=== PATIENT | female | born 1980 | race Hispanic/Latino ===

== ENCOUNTER 2023-07-29 08:24 | Observation (INO) | payer BC ==
[2023-07-28 14:40] LABS: BASOPHILS % 0.4 % (0.0-1.0); EOSINOPHILS # (AUTO) 0.1 (0.0-0.4); EOSINOPHILS % 1.6 % (0.0-6.0); HEMATOCRIT 39.4 % (34.2-44.1); HEMOGLOBIN 13.9 g/dL (12.0-16.0); LYMPHOCYTES # (AUTO) 2.4 (1.0-3.2); LYMPHOCYTES % 28.2 % (18.0-39.1); MEAN CORPUSCULAR HEMOGLOBIN 30.3 pg (28-32); MEAN CORPUSCULAR HGB CONC 35.3 g/dL (31-35); MONOCYTES # (AUTO) 0.7 (0.2-0.8); MONOCYTES % 8.5 % (4.4-11.3); NEUTROPHILS # (AUTO) 5.2 (2.1-6.9); NEUTROPHILS % 61.1 % (38.7-80.0); PLATELET COUNT 231 x10e3/uL (140-360); RED BLOOD COUNT 4.58 x10e6/uL (3.6-5.1); RED CELL DISTRIBUTION WIDTH 12.1 % (11.7-14.4); WHITE BLOOD COUNT 8.52 x10e3/uL (4.8-10.8)
[2023-07-28 14:57] LABS: INR 0.85; PROTHROMBIN TIME 12.1 seconds (11.9-14.5)
[2023-07-28 14:58] LABS: PARTIAL THROMBOPLASTIN TIME 30.4 seconds (23.8-35.5)
[2023-07-28 15:04] LABS: ANION GAP 13.1 mmol/L (8-16); CALCIUM 9.6 mg/dL (8.4-10.2); CREATININE, SERUM 0.89 mg/dL (0.57-1.11); POTASSIUM 4.1 mmol/L (3.5-5.1)
[~2023-07-29] VITALS: Ht 170.2 cm; Wt 80.7 kg
[~2023-07-29 08:24] MED LIST: BENTYL10 MG PO; DICYCLOMINE HCL20 MG PO; ONDANSETRON ODT4 MG SL; PANTOPRAZOLE SO40 MG PO; SEMAGLUTIDE SC; THROMBIN FOR SOLN 5,000 UNIT VIAL ONE; TRULANCE3 MG PO; TYLENOL #3 PO; Vancomycin IV 1 GM VIAL ONE
[2023-07-29] MEDS ORDERED: SODIUM CHLORIDE 0.9% 250ML 250 ML ONE (09:13)
[2023-07-29] MEDS ORDERED: Vancomycin IV 1 GM VIAL ONE (09:13)
[2023-07-29] MEDS ORDERED: LACTATED RINGER'S 1,000 ML ONE (09:13)
[2023-07-29] MEDS ORDERED: HYDROCODON-ACE1 EA12 PO (12:05)
[2023-07-29] MEDS ORDERED: MAGNESIUM/ALUMINUM/SIMETHICONE 30 ML UDC PO PRN (12:15)
[2023-07-29] MEDS ORDERED: MORPHINE SULFATE 5 MG/ML VIAL IM PRN (12:15)
[2023-07-29] MEDS ORDERED: ACETAMINOPHEN 325 MG TAB PO PRN (12:15)
[2023-07-29] MEDS ORDERED: PROMETHAZINE HCL (IM) 25 MG/ML VIAL IM PRN (12:15)
[2023-07-29] MEDS ORDERED: CARISOPRODOL 350 MG TAB PO PRN (12:15)
[2023-07-29] MEDS ORDERED: OXYCODONE/ACETAMINOPHEN 5-325 1 EACH TABLET PO PRN (12:15)
[2023-07-29] MEDS ORDERED: ZOLPIDEM TARTRATE 5 MG TAB PO PRN (12:15)
[2023-07-29] MEDS ORDERED: ONDANSETRON HCL INJ 2MG/ML 2ML 2 MG/ML VIAL ONE ×2 (12:25→14:35)
[2023-07-29] MEDS ORDERED: PHENYLEPHRINE HCL 1% 10 MG/ML VIAL ONE (12:25)
[2023-07-29] MEDS ORDERED: DEXAMETHASONE SOD PHOS 10 MG/1 ML VIAL ONE (12:25)
[2023-07-29] MEDS ORDERED: KETAMINE 50MG/5ML SYR ONE (12:25)
[2023-07-29] MEDS ORDERED: DEXMEDETOMIDINE HCL 200 MCG/2 ML VIAL ONE (12:25)
[2023-07-29] MEDS ORDERED: ACETAMINOPHEN 1000 MG/100 ML IV ONE (12:25)
[2023-07-29] MEDS ORDERED: SUGAMMADEX SODIUM 200 MG/2 ML VIAL IV ONE (12:25)
[2023-07-29] MEDS ORDERED: ROCURONIUM BROMIDE 10 MG/ML 5ML VIAL IV ONE (12:25)
[2023-07-29] MEDS ORDERED: PROPOFOL IV EMULSION 10 MG/ML 20 ML VIAL ONE (12:25)
[2023-07-29] MEDS ORDERED: LIDOCAINE HCL 2% LOCAL INJ 5 ML SDV VIAL INJ ONE (12:25)
[2023-07-29] MEDS ORDERED: FENTANYL CITRATE/PF 100MCG/2 ML INJ ONE (13:05)
[2023-07-29] MEDS ORDERED: MIDAZOLAM HCL 2 MG/2 ML VIAL ONE (13:05)
[2023-07-29] MEDS ORDERED: Morphine 10mg syringe 10 MG/ML INJ ONE (13:05)
[2023-07-29] MEDS ORDERED: HYDROMORPHONE 1MG/1ML INJ ONE (14:22)
[2023-07-29] MEDS ORDERED: METOCLOPRAMIDE HCL 10 MG/2ML VIAL ONE (14:35)
[2023-07-29 16:17] VITALS: BP 107/67; PULSE 98; RESP 20; TEMP 97.7; O2SAT 98
[2023-07-29] MEDS: ONDANSETRON HCL INJ 2MG/ML 2ML 2 MG/ML VIAL IV PRN ×2 (16:24→20:52)
[2023-07-29] MEDS: HYDROMORPHONE 2MG/ML 2 MG/ML ML IV PRN ×2 (16:24→20:45)
[2023-07-29] MEDS: LACTATED RINGER'S 1,000 ML IV SCH ×2 (16:30→20:56)
[2023-07-29 17:54] VITALS: BP 107/67; PULSE 98; RESP 20; TEMP 97.7; O2SAT 98
[2023-07-29 20:00] VITALS: BP 109/70; PULSE 107; RESP 18; TEMP 98; O2SAT 98
[2023-07-29] MEDS: ONDANSETRON HCL 4 MG ORAL DISINTEGRATING TAB SL PRN (20:45)
[2023-07-29] MEDS: Vancomycin IV 1 GM in SODIUM CHLORIDE 0.9% 250ML 250 ML IV SCH (20:53)
[2023-07-29 21:00] VITALS: BP 109/70; PULSE 107; RESP 18; TEMP 98; O2SAT 98
[2023-07-30] VITALS (9 sets, daily range): BP systolic 98–126; BP diastolic 66–83; PULSE 87–113; RESP 16–20; TEMP 97.6–99.6; O2SAT 97–100
[2023-07-30] MEDS: HYDROMORPHONE 2MG/ML 2 MG/ML ML IV PRN (01:22)
[2023-07-30] MEDS: ONDANSETRON HCL 4 MG ORAL DISINTEGRATING TAB SL PRN ×2 (01:22→12:55)
[2023-07-30] MEDS: CEPACOL SORE THROAT LOZENGES PO PRN (01:27)
[2023-07-30] MEDS: LACTATED RINGER'S 1,000 ML IV SCH ×3 (04:55→21:35)
[2023-07-30] MEDS: ONDANSETRON HCL INJ 2MG/ML 2ML 2 MG/ML VIAL IV PRN (06:01)
[2023-07-30] MEDS: (Plecanatide (Trulance) 3 MG) PO SCH (09:00)
[2023-07-30] MEDS: PROMETHAZINE 12.5MG/ NACL 0.9% 12.5 MG/50 ML BAG IV PRN ×2 (09:38→17:55)
[2023-07-30] MEDS: Vancomycin IV 1 GM in SODIUM CHLORIDE 0.9% 250ML 250 ML IV SCH (09:39)
[2023-07-30] MEDS: PANTOPRAZOLE SOD 40 MG TABEC PO SCH (09:39)
[2023-07-30] MEDS: ACETAMINOPHEN 1000 MG/100 ML IV PRN ×2 (11:45→18:31)
[2023-07-30] MEDS: TIZANIDINE HCL 4 MG TAB PO PRN (17:55)
[2023-07-31] VITALS: BP 105/73; PULSE 85; RESP 16; TEMP 98.1; O2SAT 97
[2023-07-31] MEDS: PROMETHAZINE 12.5MG/ NACL 0.9% 12.5 MG/50 ML BAG IV PRN (02:26)
[2023-07-31] MEDS: ACETAMINOPHEN 1000 MG/100 ML IV PRN ×2 (02:46→08:44)
[2023-07-31 04:00] VITALS: BP 108/72; PULSE 77; RESP 16; TEMP 98; O2SAT 97
[2023-07-31] MEDS: LACTATED RINGER'S 1,000 ML IV SCH (05:14)
[2023-07-31 08:02] VITALS: BP 108/72; PULSE 77; RESP 16; TEMP 98; O2SAT 97
[2023-07-31] MEDS: PANTOPRAZOLE SOD 40 MG TABEC PO SCH (08:09)
[2023-07-31] MEDS: CEPACOL SORE THROAT LOZENGES PO PRN (08:44)
[2023-07-31] MEDS: TIZANIDINE HCL 4 MG TAB PO PRN (08:45)
[2023-07-31] MEDS: (Plecanatide (Trulance) 3 MG) PO SCH (09:00)
[2023-07-31 09:04] VITALS: BP 108/72; PULSE 77; RESP 16; TEMP 98; O2SAT 97
[2023-07-31 09:06] VITALS: BP 108/77; PULSE 89; RESP 18; TEMP 98.9; O2SAT 99
[2023-07-31 09:31] VITALS: BP 108/77; PULSE 89; RESP 18; TEMP 98.9; O2SAT 99
== END 2023-07-31 09:59 | disposition home or self-care (01) ==
LOC: OR 08:24 → PACU V 12:03 → MED/SURG 15:59
PROVIDERS: ADMIT Neurological Surgery; ATTEND Neurological Surgery
DX: M47.22 Other spondylosis with radiculopathy, cervical region (principal); M50.121 Cervical disc disorder at C4-C5 level with radiculopathy; K21.00 Gastro-esophageal reflux disease with esophagitis, without bleeding; K58.9 Irritable bowel syndrome, unspecified; K51.90 Ulcerative colitis, unspecified, without complications; K57.90 Diverticulosis of intestine, part unspecified, without perforation or abscess without bleeding; K90.0 Celiac disease; G89.29 Other chronic pain; F17.210 Nicotine dependence, cigarettes, uncomplicated; Z01.810 Encounter for preprocedural cardiovascular examination; Z01.812 Encounter for preprocedural laboratory examination; Z01.818 Encounter for other preprocedural examination; Z79.899 Other long term (current) drug therapy
CPT/HCPCS: 20931; 22551; 22552; 22845; 36415; 71046; 72040; 76000; 80048; 85025; 85610; 85730; 86850; 86900; 88304; 88311; 93005; C1713 ×4; C1768; G0378 ×3; J0131 ×3; J1100; J1170 ×3; J2001; J2250; J2270 ×2; J2371; J2405 ×2; J2550 ×2; J2704; J2765; J3010; J3370 ×2; J7050 ×2; J7121 ×3; Q0162; S0164 ×2